=== PATIENT | male | born 1995 | race Native Hawaiian/Other Pacific Islander ===

== ENCOUNTER 2018-11-04 17:09 | Emergency (ER) | payer OTHER ==
[~2018-11-04] VITALS: Ht 180.3 cm; Wt 104.3 kg
[2018-11-04 17:14] VITALS: TEMP 98.8
[2018-11-04 18:13] LABS: PLATELET COUNT 292 K/uL (142-355)
[2018-11-04 18:27] LABS: POTASSIUM 4.1 mmol/L (3.6-5.2)
[2018-11-04 19:05] VITALS: BP 144/92
== END 2018-11-04 19:05 | disposition short-term general hospital (02) ==
LOC: ED 17:09
PROVIDERS: Family Medicine
DX: S05.8X2A Other injuries of left eye and orbit, initial encounter (principal); H54.62 Unqualified visual loss, left eye, normal vision right eye; S00.212A Abrasion of left eyelid and periocular area, initial encounter; W20.8XXA Other cause of strike by thrown, projected or falling object, initial encounter
CPT/HCPCS: 36415; 80053; 85027; 96360; 96365; 96366; 96375; 99284; J0696; J1885

== ENCOUNTER 2018-11-04 19:08 | Outpatient (CLI) | payer OTHER | END 2018-11-04 20:30 | disposition short-term general hospital (02) | LOC: AMB 19:08 | DX: S05.32XA Ocular laceration without prolapse or loss of intraocular tissue, left eye, initial encounter (principal); R51 Headache; H54.7 Unspecified visual loss | CPT/HCPCS: A0425; A0429 ==